=== PATIENT | female | born 1945 | race Caucasian/White ===

== ENCOUNTER 2025-05-28 10:00 | Outpatient (RCR) | payer MEDICARE, SELFPAY ==
--- NOTE | 2025-03-06 15:58 | BUSTOPEVAL1 ---
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 The patient reported that she began noticing difficulty around 2 years ago when she experienced some TIA's. She reported that it has gotten significantly worse over the past year. 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 She also reported that she has noticed an increase in difficulty with her cognition and has difficulty remembering things at times. The current anomia, paraphasia's, and decline in cognitive skills impact the patient's ability to complete her daily tasks, participate in social interactions and overall conversation abilities indicating the need for skilled ST treatment at this time. Reported Pain Level Pain Score 0: Self Report Assessment ST Clinical Summary Patient was referred for a skilled ST evaluation due to continued increase in concerns with her ability to formulate the words she wants to say along with producing an incorrect word for the intended word (semantic paraphasia's). Patient reported that she first noticed the problem around two years ago but over the past year she has noticed a significant increase in word finding difficulties resulting in frustration which in return negatively impact's the patient's ability to complete her daily activities which include public speaking through her cheondoism. She has also noticed an increase in difficulty with her short term memory skills with difficulty recalling recent events. Throughout the assessment the patient spoke at the fluent level but demonstrated an increase in anomia and semantic paraphasia's at the conversation level. During the assessment the patient was attempting to produce the target word hiatus describing an event and used the word hospice. She reported that this happens often along with inability to recall words she is attempting to produce. The SLUMS Examination was administered during the assessment with a score of 22/30 indicating a mild neurocognitive disorder at this time. Patient demonstrated difficulty completing simple mathematical task, divergent naming, recalling target words with a delay in presentation, and producing 4 number sequence in reverse order. The [facility] Adult Language Evaluation was administered with difficulty noted in the following areas: simple, moderate and complex paragraph retention, complex sentence reading comprehension task, moderate level reading comprehension task, and divergent naming skills. 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 Recommendation for skilled ST treatment 1x/week for 10 visits. Plan of Care Interventions Treatment of Speech,Treatment of Language, Treatment for Cognitive Function Treatment Frequency and 1x/week for 10 visits Duration These treatments will address the objective and functional deficits as defined above. The patient will be advanced safely and appropriately in order for the patient to progress towards his/her prior level of function. Additional exercises will be introduced and as well as a comprehensive home exercise program upon discharge, if needed, ?to ensure carryover of functional gains achieved in the clinic. This treatment plan has been reviewed and agreement upon by the patient.
--- NOTE | 2025-03-06 15:58 | OPREHPOC ---
Outpatient Therapy Plan of Care This is a Multidisciplinary Plan of Care that may contain components documented by all disciplines (PT, OT, and ST.) ST Problem 1 ST Problem #[address] Goal 1 Goal / Goal Update 1. Patient will participate in home programming to promote carryover/generalization of skills to home environment. Target Visit [address] Problem #[address] Goal 1 Goal / Goal Update 1. Patient will complete functional mathematical tasks with minimal cues and 90% accuracy. 2. Patient will demonstrate improved memory through completion of paragraph recall tasks at the moderate/complex level with 90% accuracy and minimal cues. 3. Patient will demonstrate improved memory through completion of recalled items (word lists, items, information) with delay in presentation with 90% accuracy and minimal cues. Target Visit [address] Problem #[address] Goal 1 Goal / Goal Update 1. Patient will complete word finding tasks ( compare/contrast, divergent naming, opposites) with 90% accuracy and minimal cues. 2. Patient will speak at the sentence/conversation level with minimal to anomia through use of trained compensatory techniques with minimal cues. 3. Patient will describe pictures at the sentence level with 90% accuracy and minimal cues. Target Visit 10
--- NOTE | 2025-03-19 14:31 | PCSTNOTE ---
Patient called & cancelled scheduled appointment this date due to currently being in the ER for vertigo.
--- NOTE | 2025-06-04 09:49 | PCSTNOTE ---
This treatment is being continued on visit number [id number]. Please see documentation on both accounts to view progress. Completed interventions, outcomes, and problems have been marked as Inactive to facilitate the copying of the Care plan routine for recurring accounts.
== END 2025-06-03 23:59 | disposition home or self-care (01) ==
LOC: CHSST 10:00
PROVIDERS: PCP Family Medicine
DX: F80.81 Childhood onset fluency disorder (principal); R41.841 Cognitive communication deficit
CPT/HCPCS: 92507; 92523; 96125

== ENCOUNTER 2025-06-04 10:05 | Outpatient (RCR) | payer MEDICARE, SELFPAY ==
--- NOTE | 2025-06-04 09:50 | PCSTNOTE ---
The treatment documented on this account is a continuation of the treatment documented on visit number [id number]. Please see documentation on both accounts to view progress. The Plan of Care has been transitioned and updated within the new A#. I have addressed and agree with the discipline specific Problems, Interventions, and Goals for the current certification period. Completed interventions, outcomes, and problems have been marked as Inactive to facilitate the copying of the Care plan routine for recurring accounts.
--- NOTE | 2025-06-11 12:59 | BUSTOPDC ---
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 The patient reported that she began noticing difficulty around 2 years ago when she experienced some TIA's. She reported that it has gotten significantly worse over the past year. 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 She also reported that she has noticed an increase in difficulty with her cognition and has difficulty remembering things at times. She has completed a total of [address] treatment sessions since the initial evaluation on 03-05-25 with reported improvements in overall word finding skills and overall fluency of speech. She continues to experience difficulty with her memory but has recently met goal for paragraph retention at the moderate/complex level. Patient education regarding external aides for memory along with internal aides along with handouts and activities to continue to target at home after skilled ST treatment. Discussion regarding improvements noted and plateau in skills with plan to discharge from skilled ST at this time with response in understanding and agreement. Reported Pain Level Pain Score 0: Self Report Pain Score 0: Self Report Pain Score 0: Self Report Assessment ST Clinical Summary Patient was referred for a skilled ST evaluation due to continued increase in concerns with her ability to formulate the words she wants to say along with producing an incorrect word for the intended word (semantic paraphasia's). Patient reported that she first noticed the problem around two years ago but over the past year she has noticed a significant increase in word finding difficulties resulting in frustration which in return negatively impact's the patient's ability to complete her daily activities which include public speaking through her [employer]. She has also noticed an increase in difficulty with her short term memory skills with difficulty recalling recent events. Patient has completed a total of [address] treatment sessions with noted improvements in verbal expression, memory and functional mathematical skills. Patient met goals for paragraph retention at the moderate/complex level along with describing pictures at the sentence level without hesitations and word finding difficulties. The SLUMS was re- administered during the session this date with noted improvements in overall skills with a score of 28/30 indicating normal cognitive function at this time (previous testing 6-23-25 with a score of 22/30). Patient continues to notice some difficulty with her memory skills with various handouts given regarding external and internal aides to improve skills along with other strategies and activities. Discussion regarding plan to discharge at this time due to noted improvements in overall goal completion with response in understanding and agreement. Patient was sent home with a packet of activities to target cognitive-communication function along with recommendation for cognitive application to get on her phone. Discharge from skilled treatment at this time. Plan of Care Interventions Treatment of Speech,Treatment of Language, Treatment for Cognitive Function Treatment Frequency and Discharge at this time. Duration
--- NOTE | 2025-06-11 12:59 | OPREHPOC ---
Outpatient Therapy Plan of Care This is a Multidisciplinary Plan of Care that may contain components documented by all disciplines (PT, OT, and ST.) ST Problem 1 ST Problem #[address] Goal 1 Goal / Goal Update 1. Patient will participate in home programming to promote carryover/generalization of skills to home environment. Goal met. Target Visit [address] Problem 2 ST Problem #[address] Goal 1 Goal / Goal Update 1. Patient will complete functional mathematical tasks with minimal cues and 90% accuracy. Discharge goal: 83% accuracy average with minimal cues. 2. Patient will demonstrate improved memory through completion of paragraph recall tasks at the moderate/complex level with 90% accuracy and minimal cues. Goal met. 100% accuracy with complex paragraph recall. 3. Patient will demonstrate improved memory through completion of recalled items (word lists, items, information) with delay in presentation with 90% accuracy and minimal cues. Goal met with 90% accuracy and minimal cues. Target Visit [address] Problem 3 ST Problem #[address] Goal 1 Goal / Goal Update 1. Patient will complete word finding tasks ( compare/contrast, divergent naming, opposites) with 90% accuracy and minimal cues. Discharge goal. 60-90% accuracy with minimal/ moderate cues. Increased difficulty in divergent naming skills. 2. Patient will speak at the sentence/conversation level with minimal to anomia through use of trained compensatory techniques with minimal cues. Discharge goal. minimal to minimal+ cues. 3. Patient will describe pictures at the sentence level with 90% accuracy and minimal cues. Goal met. 90-100% accuracy with minimal cues. Target Visit 10 Progress Partially Met
== END 2025-06-11 20:00 | disposition home or self-care (01) ==
LOC: CHSST 10:05
DX: F80.81 Childhood onset fluency disorder (principal); R41.841 Cognitive communication deficit
CPT/HCPCS: 92507